=== PATIENT | female | born 2000 | race American Indian/Alaskan Native ===

== ENCOUNTER 2021-04-13 09:27 | Emergency (ER) | payer SELFPAY ==
[2021-04-13] MEDS ORDERED: IBUPROFEN 800 MG TAB PO ONE (10:52)
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
[2021-04-13 11:31] VITALS: BP 110/70
== END 2021-04-13 11:30 | disposition home or self-care (01) ==
LOC: ED 09:27
DX: S09.90XA Unspecified injury of head, initial encounter (principal); M54.6 Pain in thoracic spine; V87.7XXA Person injured in collision between other specified motor vehicles (traffic), initial encounter; Y93.89 Activity, other specified; Y92.488 Other paved roadways as the place of occurrence of the external cause; Y99.8 Other external cause status
CPT/HCPCS: 99282